=== PATIENT | female | born 1980 | race Hispanic/Latino ===

== ENCOUNTER 2024-07-12 12:38 | Outpatient (CLI) | payer OTHER | END 2024-07-12 12:39 | disposition home or self-care (01) | LOC: CSHMAMMO 12:38 | PROVIDERS: ATTEND Nurse Practitioner Family | DX: Z12.31 Encounter for screening mammogram for malignant neoplasm of breast (principal) | CPT/HCPCS: 77063; 77067 ==

== ENCOUNTER 2025-02-27 10:56 | Day surgery (SDC) | payer OTHER ==
[2025-02-27 12:06] VITALS: BMI 31.4
[2025-02-27 12:25] LABS: Glucose, Urine (Dipstick) 50 mg/dL (Negative); Leukocyte Negative (Negative); Protein, Urine (Dipstick) 15 mg/dl (Neg-Trace); Specific Gravity, Urine 1.015 (1.005-1.030)
[2025-02-27 12:37] LABS: Bacteria/HPF 1+ HPF (None Seen); CAUTI Indications for Culture Dysuria,urgency,freq; RBC/HPF None Seen HPF (0-3); WBC/HPF 0-3 HPF (0-3)
[2025-02-27 12:38] LABS: Urine Culture Reflex No No
== END 2025-02-27 15:35 | disposition home or self-care (01) ==
LOC: CSHLD/OP 10:56
PROVIDERS: ATTEND Family Medicine
DX: O99.891 Other specified diseases and conditions complicating pregnancy (principal); R10.31 Right lower quadrant pain; R11.0 Nausea; O09.42 Supervision of pregnancy with grand multiparity, second trimester; O09.522 Supervision of elderly multigravida, second trimester; O99.212 Obesity complicating pregnancy, second trimester; Z3A.21 21 weeks gestation of pregnancy; Z88.1 Allergy status to other antibiotic agents; Z79.899 Other long term (current) drug therapy
CPT/HCPCS: 81001; 99283

== ENCOUNTER 2025-06-13 14:38 | Day surgery (SDC) | payer OTHER ==
[2025-06-13] MEDS ORDERED: hydrALAZINE 20 MG/ML VIAL SLOW IVP PRN (15:38)
[2025-06-13 15:47] VITALS: BMI 34.0
[2025-06-13 16:45] LABS: ALT (SGPT) 68 U/L (Less than 34); AST (SGOT) 58 U/L (11-34); Albumin 2.6 g/dL (3.1-4.5); Alkaline Phosphatase 153 U/L (40-110); Anion Gap 11 mmol/L (10-20); BUN (Urea Nitrogen) 7 mg/dL (7.0-18.7); Bilirubin, Total 0.3 mg/dL (0.3-1.2); Calc. Creatinine Clearance 176 mL/min (70-130); Calcium 9.0 mg/dL (7.8-10.44); Carbon Dioxide 20 mmol/L (22-29); Chloride 109 mmol/L (98-107); Globulin 3.7 g/dL (2.4-3.5); Glucose 71 mg/dL (70-105); Potassium 3.8 mmol/L (3.5-5.1); Sodium 136 mmol/L (136-145)
== END 2025-06-13 17:25 | disposition home or self-care (01) ==
LOC: CSHLD/OP 14:38
PROVIDERS: ATTEND Family Medicine
DX: O36.8330 Maternal care for abnormalities of the fetal heart rate or rhythm, third trimester, not applicable or unspecified (principal); O09.523 Supervision of elderly multigravida, third trimester; O09.43 Supervision of pregnancy with grand multiparity, third trimester; O26.893 Other specified pregnancy related conditions, third trimester; L29.9 Pruritus, unspecified; Z3A.36 36 weeks gestation of pregnancy; Z88.1 Allergy status to other antibiotic agents; Z79.899 Other long term (current) drug therapy
CPT/HCPCS: 36415; 80053; 82239

== ENCOUNTER 2025-06-17 12:04 | Day surgery (SDC) | payer OTHER ==
[2025-06-17] MEDS ORDERED: hydrALAZINE 20 MG/ML VIAL SLOW IVP PRN (12:42)
[2025-06-17 13:17] VITALS: BMI 33.5
[2025-06-17 14:10] LABS: ALT (SGPT) 75 U/L (Less than 34); AST (SGOT) 60 U/L (11-34); Albumin 2.5 g/dL (3.1-4.5); Alkaline Phosphatase 165 U/L (40-110); Anion Gap 13 mmol/L (10-20); BUN (Urea Nitrogen) 9 mg/dL (7.0-18.7); Bilirubin, Total 0.3 mg/dL (0.3-1.2); Calc. Creatinine Clearance 174 mL/min (70-130); Calcium 8.5 mg/dL (7.8-10.44); Carbon Dioxide 22 mmol/L (22-29); Chloride 107 mmol/L (98-107); Globulin 3.1 g/dL (2.4-3.5); Glucose 99 mg/dL (70-105); Potassium 3.7 mmol/L (3.5-5.1); Sodium 138 mmol/L (136-145)
== END 2025-06-17 15:50 | disposition home or self-care (01) ==
LOC: CSHLD/OP 12:04
PROVIDERS: ATTEND Family Medicine
DX: O26.643 Intrahepatic cholestasis of pregnancy, third trimester (principal); O09.523 Supervision of elderly multigravida, third trimester; O09.43 Supervision of pregnancy with grand multiparity, third trimester; Z3A.37 37 weeks gestation of pregnancy; Z88.1 Allergy status to other antibiotic agents
CPT/HCPCS: 36415; 76819; 80053

== ENCOUNTER 2025-06-19 18:00 | Inpatient (IN) | payer OTHER ==
[2025-06-19] MEDS ORDERED: Penicillin G Potassium 5 MILL.UNITS in Sodium Chloride 0.9% 100 ML IVPB SCH ×2 (18:30→19:15)
[2025-06-19] MEDS ORDERED: Tranexamic Acid 1,000 MG/10 ML VIAL IVP PRN (18:30)
[2025-06-19] MEDS ORDERED: Ibuprofen 800 MG TAB PO PRN (18:30)
[2025-06-19] MEDS ORDERED: hydrALAZINE 20 MG/ML VIAL SLOW IVP PRN (18:30)
[2025-06-19] MEDS ORDERED: Lidocaine 1% (PF) 30 ML VIAL SC PRN (18:30)
[2025-06-19] MEDS ORDERED: Oxytocin 30 units/NS 500 ML 500 ML IV SCH ×2 (18:30)
[2025-06-19] MEDS ORDERED: Methylergonovine 0.2 MG/ML VIAL IM PRN (18:30)
[2025-06-19] MEDS ORDERED: Carboprost 250 MCG/ML AMP IM PRN (18:30)
[2025-06-19] MEDS ORDERED: Diphenoxylate HCl/Atropine Tablet PO PRN ×2 (18:30)
[2025-06-19] MEDS ORDERED: Penicillin G 2.5 MILL.units 2.5 MILL.UNITS in Premix 1 BAG IVPB SCH ×2 (19:15→22:30)
[2025-06-19 20:10] VITALS: BMI 33.5
[2025-06-19 20:19] LABS: Hematocrit 35.6 % (34.9-44.5); Hemoglobin 12.2 g/dL (12.0-15.5); Mean Corpuscular Hemoglobin 29.3 pg (27.0-33.0); Mean Corpuscular Volume 85.6 fL (81.6-98.3); Platelet Count 182 10x3/uL (150-450); Red Blood Cell (RBC) Count 4.16 10x6/uL (3.90-5.03); White Blood Cell (WBC) Count 6.52 10x3/uL (3.5-10.5)
[2025-06-19 20:35] LABS: ALT (SGPT) 67 U/L (Less than 34); AST (SGOT) 59 U/L (11-34); Albumin 2.6 g/dL (3.1-4.5); Alkaline Phosphatase 178 U/L (40-110); Anion Gap 15 mmol/L (10-20); BUN (Urea Nitrogen) 7 mg/dL (7.0-18.7); Bilirubin, Total 0.3 mg/dL (0.3-1.2); Calc. Creatinine Clearance 158 mL/min (70-130); Calcium 8.9 mg/dL (7.8-10.44); Carbon Dioxide 20 mmol/L (22-29); Chloride 107 mmol/L (98-107); Globulin 3.7 g/dL (2.4-3.5); Glucose 94 mg/dL (70-105); Potassium 3.4 mmol/L (3.5-5.1); Sodium 139 mmol/L (136-145)
[2025-06-19 20:54] LABS: Hep B Surf Ag - L&D Non-Reactive S/CO (NonReactive)
[2025-06-19 20:55] LABS: Syphilis Antibody Index 0.06 S/CO (<1.00 Non-Reactive)
[2025-06-19 23:16] LABS: Protein, Urine Random Quant 14.0 mg/dL (1-14)
[2025-06-20] MEDS: fentaNYL 2 mcg/Ropivacaine 0.2% Epidural 100 ML CADD EPIDURAL SCH (00:20)
[2025-06-20] MEDS ORDERED: Ondansetron PF 4 MG/2 ML Vial IVP PRN ×2 (00:23→10:01)
[2025-06-20] MEDS ORDERED: diphenhydrAMINE 50 MG/ML VIAL IVP PRN (00:23)
[2025-06-20] MEDS ORDERED: Acetaminophen 325 MG TAB PO PRN (00:23)
[2025-06-20] MEDS ORDERED: Communication Order-Pharmacy FS SCH (00:30)
[2025-06-20] MEDS: Ondansetron PF 4 MG/2 ML Vial IVP PRN (02:04)
[2025-06-20] MEDS ORDERED: Bupivacaine 0.25% HCL 30 ML VIAL ONE (07:00)
[2025-06-20] MEDS: fentaNYL/Ropivacaine Epidural 100 ML ONE (07:10)
[2025-06-20] MEDS ORDERED: hydrALAZINE 20 MG/ML VIAL SLOW IVP PRN (10:01)
[2025-06-20] MEDS ORDERED: Milk Of Magnesia 30 ML UDCUP PO PRN (10:01)
[2025-06-20] MEDS ORDERED: Methylergonovine 0.2 MG/ML VIAL IM PRN (10:01)
[2025-06-20] MEDS ORDERED: Benzocaine-Menthol 82.5 ML CAN TOP PRN (10:01)
[2025-06-20] MEDS ORDERED: Methylergonovine 0.2 MG TAB PO PRN (10:01)
[2025-06-20] MEDS ORDERED: diphenhydrAMINE 25 MG CAP PO PRN (10:01)
[2025-06-20] MEDS ORDERED: Preparation H Ointment 28 GM TUBE PR PRN (10:01)
[2025-06-20] MEDS ORDERED: Bisacodyl 10 MG SUPP PR PRN (10:01)
[2025-06-20] MEDS ORDERED: Lanolin Ointment 7 GM TUBE TOP PRN (10:01)
[2025-06-20] MEDS ORDERED: Oxytocin 30 units/NS 500 ML 500 ML IV SCH (10:15)
[2025-06-20] MEDS: Penicillin G 2.5 MILL.units 2.5 MILL.UNITS in Premix 1 BAG IVPB SCH (12:21)
[2025-06-20] MEDS: Ibuprofen 800 MG TAB PO SCH (13:40)
[2025-06-20] MEDS: Ferrous Sulfate 325 MG TAB PO SCH (18:06)
[2025-06-21 03:27] LABS: Hematocrit 32.5 % (34.9-44.5); Hemoglobin 10.9 g/dL (12.0-15.5); Mean Corpuscular Hemoglobin 29.2 pg (27.0-33.0); Mean Corpuscular Volume 87.1 fL (81.6-98.3); Platelet Count 170 10x3/uL (150-450); Red Blood Cell (RBC) Count 3.73 10x6/uL (3.90-5.03); White Blood Cell (WBC) Count 9.02 10x3/uL (3.5-10.5)
[2025-06-21 08:19] VITALS: BP 117/59; TEMP 97.9
[2025-06-21] MEDS: Measles/Mumps/Rubella 10 MCG/0.5 ML VIAL SC ONE (19:16)
== END 2025-06-21 18:35 | disposition home or self-care (01) | DRG 805 ==
LOC: CSHLD 18:08 → CSHPP 06-20 12:14
PROVIDERS: ADMIT Family Medicine; ATTEND Family Medicine
PROC: 4A1HXCZ Monitoring of Products of Conception, Cardiac Rate, External Approach (ICD-10-PCS; 2025-06-19)
PROC: 3E0DXGC Introduction of Other Therapeutic Substance into Mouth and Pharynx, External Approach (ICD-10-PCS; 2025-06-19)
PROC: 10E0XZZ Delivery of Products of Conception, External Approach (ICD-10-PCS; principal; 2025-06-20)
DX: O26.643 Intrahepatic cholestasis of pregnancy, third trimester (principal); O45.93 Premature separation of placenta, unspecified, third trimester; Z37.0 Single live birth; O14.04 Mild to moderate pre-eclampsia, complicating childbirth; O34.13 Maternal care for benign tumor of corpus uteri, third trimester; O70.0 First degree perineal laceration during delivery; D25.9 Leiomyoma of uterus, unspecified; Z3A.37 37 weeks gestation of pregnancy; Z79.899 Other long term (current) drug therapy; Z79.82 Long term (current) use of aspirin; Z88.1 Allergy status to other antibiotic agents
CPT/HCPCS: 36415; 51702; 80053; 82570; 84156; 85027; 86780; 86850; 86900; 86901; 87340; J0665; J2405; J7120